=== PATIENT | male | born 1995 | race Caucasian/White ===

== ENCOUNTER 2018-06-30 19:46 | Emergency (ER) | payer BC ==
[2018-06-30] MEDS ORDERED: KETOROLAC TROMETHAMINE INJ/PF 30 MG/1 ML SDV IV ONE (20:58)
[2018-06-30 21:11] LABS: ANION GAP 10 (5-19); BLOOD UREA NITROGEN 16 mg/dL (7-20); CALCIUM 9.9 mg/dL (8.4-10.2); CARBON DIOXIDE 27 mmol/L (22-30); CHLORIDE 105 mmol/L (98-107); GLUCOSE 100 mg/dL (75-110); POTASSIUM 4.4 mmol/L (3.6-5.0); SODIUM 142.4 mmol/L (137-145)
--- NOTE | 2018-06-30 21:27 | RADIOLOGY REPORT (SQ) ---
XR CHEST 2 VIEWS HISTORY: left chest wall pain. COMPARISON: None. FINDINGS: The heart size is normal. The lungs are clear. No pleural effusions or pneumothorax is seen. No acute bony findings. IMPRESSION: No evidence of acute cardiopulmonary disease.
[2018-06-30] MEDS ORDERED: KETOROLAC TROMETHAMINE 60 MG/2 ML SDV IM ONE (21:57)
--- NOTE | 2018-06-30 22:01 | ER Document Report ---
ED General - General Chief Complaint: Chest Pain Stated Complaint: CHEST PAIN Time Seen by Provider: 06/30/18 20:13 Primary Care Provider: HOOD BUCK MD [Primary Care Provider] - Follow up as needed - [facility] Notes: Patient is a 22-year-old male that presents to the emergency department for chief complaint of chest pain. Patient reports left-sided chest pain that began today. The pain is inter mittent and lasts for a few seconds to a few minutes at a time. He states it is mildly sharp when it occurs. Patient states when he is doing something he does not notice the pain but when he is sitting at rest he occasionally notices it. He does state he has some stressors at work but no significant life changes recently. He denies history of any drug use in the past. Patient does have grandparents and aunts and uncles with cardiac disease. There is no family history of sudden cardiac at a young age. Patient did have a [address] at the end of May out of state and back. He denies any recent surgery or history of DVT/PE. He denies any lower extremity cramping or swelling. Patient denies any associated shortness of breath, lightheadedness, palpitations, nausea and diaphoresis with his chest pains. Currently he states the pain is present but mild. He denies any exacerbating or relieving factors to the pain. Past Medical History: Negative Past Surgical History: [place] teeth, tonsillectomy, benign facial cyst removed Social History: Denies tobacco, alcohol and drug use Family History: Reviewed and noncontributory for presenting illness Allergies: Reviewed, see documented allergy list. REVIEW OF SYSTEMS: CONSTITUTIONAL : No fever No chills No diaphoresis No recent illness EENT: No vision changes No congestion No sore throat CARDIOVASCULAR: chest pain No palpitations RESPIRATORY: No shortness of breath No cough No difficulty breathing GASTROINTESTINAL: No abdominal pain No nausea No vomiting No diarrhea GENITOURINARY: No dysuria No hematuria No difficulty urinating MUSCULOSKELETAL: No back pain No leg pain No arm pain SKIN: No rashes No lesions LYMPHATIC: No swollen, enlarged glands. NEUROLOGICAL: No lightheadedness No headache No weakness No paresthesias PSYCHIATRIC: No anxiety No depression PHYSICAL EXAMINATION: Vital signs reviewed, nursing noted reviewed. GENERAL: Well-appearing, well-nourished and in no acute distress. HEAD: Atraumatic, normocephalic. EYES: Eyes appear normal, extraocular movements intact, sclera anicteric, conjunctiva are normal. ENT: nares patent, oropharynx clear without exudates. Moist mucous membranes. NECK: Normal range of motion, supple without lymphadenopathy LUNGS: Breath sounds clear to auscultation bilaterally and equal. No wheezes rales or rhonchi. HEART: Regular rate and rhythm without murmurs ABDOMEN: Soft, nontender, normoactive bowel sounds. No rebound, guarding, or rigidity. No masses appreciated. EXTREMITIES: Nontender, good range of motion, no pitting or edema. NEUROLOGICAL: No focal neurological deficits. Moves all extremities spontaneously Motor and sensory grossly intact on exam. PSYCH: Normal mood, normal affect. SKIN: Warm, Dry, normal turgor, no rashes or lesions noted on exposed skin - Related Data Allergies/Adverse Reactions: DTP SHOT Allergy (Uncoded 09/24/13 09:41) Past Medical History - Social History Smoking Status: Never Smoker Family History: Reviewed & Not Pertinent Patient has suicidal ideation: No Patient has homicidal ideation: No - Past Medical History Cardiac Medical History: Denies: Hx Heart Attack, Hx Hypertension Pulmonary Medical History: Denies: Hx Asthma Neurological Medical History: Denies: Hx Cerebrovascular Accident, Hx Seizures Renal/ Medical History: Denies: Hx Peritoneal Dialysis GI Medical History: Denies: Hx Hepatitis, Hx Hiatal Hernia, Hx Ulcer Infectious Medical History: Denies: Hx Hepatitis Past Surgical History: Denies: Hx Open Heart Surgery, Hx Pacemaker - Immunizations Hx Diphtheria, Pertussis, Tetanus Vaccination: Yes Physical Exam - Vital signs Vitals: Temp Pulse Resp BP Pulse Ox 98.2 F 65 17 146/79 H 100 06/30/18 19:51 06/30/18 19:51 06/30/18 19:51 06/30/18 19:51 06/30/18 19:51 Course - Re-evaluation Re-evalutation: 06/30/18 22:00 Vitals reviewed. Nursing notes reviewed. Patient was given Toradol for his chest pain. He has no risk factors for ACS and his pain is atypical. I do not suspect ACS as a cause of his acute chest pain. D-dimer was ordered for patien t's complaint because of his recent travel. His d-dimer is negative. He is not tachycardic or in any respiratory distress and I do not suspect any PE with a negative d-dimer. Patient's chest x-ray shows no pneumothorax or other acute cardiopulmonary disease. He has remained hemodynamically stable. Patient will follow with his primary care doctor for close reevaluation of his chest pain. He will return to the emergency room for any new or worsening symptoms. Patient's family and patient in agreement with plan of care. Laboratory 06/30/18 06/30/18 06/30/18 20:16 20:16 21:05 D-Dimer Cancelled < 0.27 Sodium 142.4 Potassium 4.4 Chloride 105 Carbon Dioxide 27 Anion Gap 10 BUN 16 Creatinine 1.01 Est GFR ( Amer) > 60 Est GFR (Non-Af Amer) > 60 Glucose 100 Calcium 9.9 Chest X-Ray 06/30/18 20:19 IMPRESSION: No evidence of acute cardiopulmonary disease. - Vital Signs Vital signs: Temp Pulse Resp BP Pulse Ox 98.2 F 65 17 146/79 H 100 06/30/18 19:51 06/30/18 19:51 06/30/18 19:51 06/30/18 19:51 06/30/18 19:51 - Laboratory Result Diagrams: 06/30/18 20:16 - EKG Interpretation by Me Additional EKG results interpreted by me: 06/30/18 21:59 Interpreted by myself 2027: Normal sinus rhythm, rate 72, normal axis, no ectopy, no ST elevation, no Wellens or Brugada Discharge - Discharge Clinical Impression: Chest pain Qualifiers: Chest pain type: unspecified Qualified Code(s): R07.9 - Chest pain, unspecified Condition: Stable Disposition: HOME, SELF-CARE Instructions: Chest Pain of Unclear Cause ([facility]) Additional Instructions: Please return to the emergency department if you have any worsening, or concern of your symptoms. Please return to the emergency department if you develop chest pain, difficulty breathing, severe abdominal pain, or ongoing vomiting. Please follow-up with your primary care physician in 2-3 days and any other recommended physicians. If prescribed, take all medications as directed. If you have any questions or concerns do not hesitate to return the emergency department for evaluation. Referrals: HOOD BUCK MD [Primary Care Provider] - Follow up in 3-5 days
[2018-06-30 22:11] VITALS: BP 120/68
--- NOTE | 2018-07-01 13:07 | EKG REPORT ---
SEVERITY:- NORMAL ECG - SINUS RHYTHM : Confirmed by: Kayy Truong MD 01-Jul-2018 13:06:52
== END 2018-06-30 22:18 | disposition home or self-care (01) ==
LOC: ER 19:46
DX: R07.9 Chest pain, unspecified (principal)
CPT/HCPCS: 36415; 71046; 80048; 85379; 93005; 93010; 99285